=== PATIENT | male | born 1980 | race African-American/Black ===

== ENCOUNTER 2020-05-22 17:02 | Emergency (ER) | payer BC, OTHER ==
[2020-05-22 17:16] VITALS: BMI 34.2
[2020-05-22 17:19] VITALS: BP 123/76; PULSE 73; TEMP 99.3
[2020-05-22] MEDS ORDERED: ACETAMINOPHEN 325 MG TABLET (FP) PO ONE (18:41)
[2020-05-22] MEDS ORDERED: ACETAMINOPHEN 325 MG TABLET (FP) ONE (18:58)
== END 2020-05-22 19:06 | disposition home or self-care (01) ==
LOC: FER 17:02
DX: R51.9 Headache, unspecified (principal); R53.81 Other malaise; B34.9 Viral infection, unspecified
CPT/HCPCS: 99283-25; C9803; U0003

== ENCOUNTER 2022-05-05 13:51 | Emergency (ER) | payer OTHER ==
[2022-05-05 14:12] VITALS: BP 124/66; PULSE 74; RESP 18; TEMP 97.8; BMI 30.4
[2022-05-05] MEDS ORDERED: AMOX TR/POT CLAV 875MG/125MG TABLETS (FP) PO ONE (14:47)
[2022-05-05] MEDS ORDERED: DIPHTH,PERTUSS(ACELL),TET 0.5 ML DISP.SYRIN IM ONE ×2 (14:47→14:50)
[2022-05-05] MEDS ORDERED: AMOX TR/POT CLAV 875MG/125MG TABLETS (FP) ONE (14:49)
== END 2022-05-05 15:55 | disposition home or self-care (01) ==
LOC: JERFT 13:51
PROC: 3E0234Z Introduction of Serum, Toxoid and Vaccine into Muscle, Percutaneous Approach (ICD-10-PCS; principal; 2022-05-05)
DX: S91.331A Puncture wound without foreign body, right foot, initial encounter (principal); W45.0XXA Nail entering through skin, initial encounter
CPT/HCPCS: 73630-TC-RT-FY; 90471; 90715; 99284-25